=== PATIENT | male | born 1975 | race Caucasian/White ===

== ENCOUNTER 2020-10-16 15:23 | Outpatient (REF) | payer OTHER, MEDICAID, SELFPAY | END 2020-10-16 15:24 | disposition home or self-care (01) | LOC: HO.LAB 15:23 | PROVIDERS: PCP Internal Medicine; Visit Provider Internal Medicine | DX: Z20.828 Contact with and (suspected) exposure to other viral communicable diseases (principal) | CPT/HCPCS: C9803; U0003 ==

== ENCOUNTER 2020-11-18 14:02 | Outpatient (REF) | payer OTHER, MEDICAID, SELFPAY | END 2020-11-18 14:03 | disposition home or self-care (01) | LOC: HO.LAB 14:02 | PROVIDERS: PCP Internal Medicine; Visit Provider Internal Medicine | DX: Z20.822 Contact with and (suspected) exposure to COVID-19 (principal) | CPT/HCPCS: 36415; C9803; U0003 ==

== ENCOUNTER 2021-06-11 16:00 | Outpatient (REF) | payer OTHER, MEDICAID, SELFPAY | END 2021-06-11 16:01 | disposition home or self-care (01) | LOC: HO.LAB 16:00 | PROVIDERS: PCP Internal Medicine; Visit Provider Internal Medicine | DX: Z13.89 Encounter for screening for other disorder (principal) ==